=== PATIENT | male | born 1990 | race Hispanic/Latino ===

== ENCOUNTER 2022-02-17 08:26 | Inpatient (IN) | payer OTHER, SELFPAY ==
[2022-02-17] MEDS ORDERED: Morphine 4 MG/ML VIAL ONE (09:19)
[2022-02-17] MEDS ORDERED: Ondansetron PF 4 MG/2 ML Vial ONE ×2 (09:20→12:17)
[2022-02-17 10:13] LABS: #Basophils 0.1 thou/uL (0.0-0.2); #Lymphocytes 1.3 thou/uL (1.20-3.40); #Neutrophils 13.5 thou/uL (1.40-6.50); %Basophils 0.4 % (0.0-1.0); %Eosinophils 0.2 % (0.0-10.0); %Lymphocytes 8.2 % (21.0-51.0); %Neutrophils 85.1 % (42.0-75.0); Mean Corpuscular HGB CONC 33.6 g/dL (32.0-36.0); Mean Corpuscular Hemoglobin 31.3 pg (27.0-31.0); Mean Corpuscular Volume 93.3 fl (78.0-98.0); Mean Platelet Volume 6.6 fL (7.4-10.4); Platelet Count 265 10x3/uL (130-400); RBC Distribution Width 13.9 % (11.5-14.5); Red Blood Cell (RBC) Count 4.47 mill/uL (4.70-6.10); White Blood Cell (WBC) Count 15.9 10x3/uL (4.8-10.8)
[2022-02-17 10:33] LABS: ALT (SGPT) 14 U/L (8-55); AST (SGOT) 14 U/L (5-34); Albumin 3.7 g/dL (3.5-5.0); Alkaline Phosphatase 98 U/L (40-110); Anion Gap 10 mmol/L (10-20); BUN (Urea Nitrogen) 5 mg/dL (8.9-20.6); Bilirubin, Total 0.2 mg/dL (0.2-1.2); Calc. Creatinine Clearance 0 mL/min (70-130); Calcium 7.9 mg/dL (7.8-10.44); Carbon Dioxide 24 mmol/L (22-29); Chloride 105 mmol/L (98-107); Estimated GFR 127; Globulin 2.9 g/dL (2.4-3.5); Glucose 115 mg/dL (70-105); Potassium 3.4 mmol/L (3.5-5.1); Protein, Total 6.6 g/dL (6.0-8.3); Sodium 136 mmol/L (136-145)
[2022-02-17 11:07] LABS: Magnesium 1.7 mg/dL (1.6-2.6); Phosphorus 2.1 mg/dL (2.3-4.7)
[2022-02-17] MEDS ORDERED: Boostrix 0.5 ML (Tdap) VIAL (>/=7 yrs of age) ONE (11:25)
[2022-02-17] MEDS ORDERED: Ondansetron PF 4 MG/2 ML Vial IVP PRN (11:34)
[2022-02-17] MEDS ORDERED: TETANUS, DIPHTHERIA TOX,ADULT (TDVAX) 0.5 ML VIAL IM ONE (11:34)
[2022-02-17] MEDS ORDERED: Dextrose 5% in Water 1,000 ML IV PRN (11:34)
[2022-02-17] MEDS ORDERED: hydrALAZINE 20 MG/ML VIAL SLOW IVP PRN (11:34)
[2022-02-17] MEDS ORDERED: Dextrose 50% Abboject 50 ML SYRINGE SLOW IVP PRN (11:34)
[2022-02-17] MEDS ORDERED: Morphine 4 MG/ML VIAL SLOW IVP PRN (11:34)
[2022-02-17] MEDS ORDERED: Sodium Chloride 0.9% 100 ML ONE (11:44)
[2022-02-17] MEDS ORDERED: FENTANYL 50 MCG/ML 1 ML VIAL ONE ×3 (11:44→14:35)
[2022-02-17] MEDS ORDERED: CEFAZOLIN 2 GM VIAL ONE (11:44)
[2022-02-17] MEDS ORDERED: Sodium Chloride 0.9% 1,000 ML IV SCH (11:45)
[2022-02-17] MEDS ORDERED: Magnesium 2 GM/50 ML(in water) 2 GM in Premix Bag 1 BAG IVPB SCH (11:45)
[2022-02-17] MEDS ORDERED: Potassium Phosphate 30 MMOL, Magnesium Sulfate 2 GM in Sodium Chloride 0.9% 250 ML 250 ML IVPB SCH (11:45)
[2022-02-17] MEDS ORDERED: HYDROmorphone 0.5 MG/0.5 ML SYRINGE ONE (11:49)
[2022-02-17] MEDS ORDERED: fentaNYL PF 100 MCG/2 ML SYRINGE ONE (11:49)
[2022-02-17] MEDS ORDERED: Bupivacaine HCl 0.5%/Epinephrine 1:200,000/PF 30 ml Vial ONE (12:02)
[2022-02-17] MEDS ORDERED: Neomycin-Polymyxin 1 ML AMP ONE (12:02)
[2022-02-17] MEDS ORDERED: Bupivacaine 0.25% HCL 30 ML VIAL ONE (12:02)
[2022-02-17] MEDS ORDERED: Bupivacaine PF 0.5% 30 ML VIAL ONE (12:03)
[2022-02-17] MEDS ORDERED: Bupivacaine/Epinephrine 0.25% 30 ML VIAL ONE (12:03)
[2022-02-17] MEDS ORDERED: Vancomycin 1 GM/200 ML (FROZEN) BAG ONE (12:06)
[2022-02-17] MEDS ORDERED: CEFAZOLIN 2 GM in Sodium Chloride 0.9% 100 ML IVPB SCH (12:15)
[2022-02-17] MEDS ORDERED: PROPOFOL 200 MG/20 ML VIAL ONE (12:17)
[2022-02-17] MEDS ORDERED: Dexamethasone 20 MG/5 ML VIAL ONE (12:17)
[2022-02-17] MEDS ORDERED: Ketorolac Tromethamine 30 MG/ML VIAL ONE (12:17)
[2022-02-17] MEDS ORDERED: Metoclopramide HCl 10 MG/2 ML VIAL ONE (12:17)
[2022-02-17] MEDS ORDERED: Meperidine HCl/PF 25 MG/ML VIAL ONE (14:06)
[2022-02-17] MEDS ORDERED: Ondansetron HCl/PF 4 MG/2 ML Vial IVP PRN (14:10)
[2022-02-17] MEDS ORDERED: Promethazine HCl 25 MG/ML VIAL IM PRN (14:10)
[2022-02-17] MEDS ORDERED: Promethazine HCl 25 MG/ML VIAL IVPB PRN (14:10)
[2022-02-17] MEDS ORDERED: PACU-Morphine 4MG/ML VIAL SLOW IVP PRN (14:10)
[2022-02-17 15:27] VITALS: BMI 19.1
[2022-02-17] MEDS ORDERED: Vancomycin 1 GM in Premix Bag 1 BAG IVPB SCH (15:45)
[2022-02-17] MEDS: Gabapentin 300 MG CAP PO SCH ×2 (15:55→19:58)
[2022-02-17] MEDS: traMADol HCl 50 MG TAB PO SCH ×2 (15:56→19:59)
[2022-02-17] MEDS: Oxazepam 10 MG CAP PO SCH ×2 (15:57→22:19)
[2022-02-17] MEDS: Acetaminophen 500 MG TAB PO SCH ×2 (17:56→23:44)
[2022-02-17] MEDS: Senokot S 8.6-50 MG TAB PO SCH (19:59)
[2022-02-17] MEDS: Famotidine 20 MG TAB PO SCH (19:59)
[2022-02-17] MEDS: VANCOMYCIN 1.25 GM/250 ML BAG 1.25 GM in Premix Bag 1 BAG IVPB SCH (20:00)
[2022-02-17] MEDS ORDERED: VANCOMYCIN 1.25 GM/250 ML BAG IVPB SCH (21:00)
[2022-02-17 23:03] LABS: Amphetamine Not Detected (NotDetected); Barbiturates Screen Not Detected (NotDetected); Benzodiazepine Screen Not Detected (NotDetected); Cocaine Metabolite Screen Not Detected (NotDetected); Methadone Not Detected (NotDetected); Methamphetamine Not Detected (NotDetected); Opiate Screen Detected (NotDetected); Oxycodone Screen Not Detected (NotDetected); Phencyclidine (PCP) Not Detected (NotDetected); THC/Cannabinoid Screen Detected (NotDetected); Tricyclic Screen Not Detected (NotDetected)
[2022-02-18] MEDS: traMADol HCl 50 MG TAB PO SCH ×4 (03:50→21:44)
[2022-02-18] MEDS: Oxazepam 10 MG CAP PO SCH ×3 (04:59→21:45)
[2022-02-18] MEDS: Acetaminophen 500 MG TAB PO SCH ×3 (04:59→17:26)
[2022-02-18 06:42] LABS: #Lymphocytes 1.2 thou/uL (1.20-3.40); #Monocytes 1.5 thou/uL (0.11-0.59); #Neutrophils 14.9 thou/uL (1.40-6.50); %Basophils 0.1 % (0.0-1.0); %Eosinophils 0.1 % (0.0-10.0); %Lymphocytes 6.6 % (21.0-51.0); %Monocytes 8.5 % (0.0-10.0); %Neutrophils 84.8 % (42.0-75.0); Hemoglobin 12.6 g/dL (14.0-18.0); Mean Corpuscular Hemoglobin 31.4 pg (27.0-31.0); Mean Corpuscular Volume 95.3 fl (78.0-98.0); Mean Platelet Volume 6.8 fL (7.4-10.4); Platelet Count 251 10x3/uL (130-400); RBC Distribution Width 13.7 % (11.5-14.5); Red Blood Cell (RBC) Count 4.01 mill/uL (4.70-6.10); White Blood Cell (WBC) Count 17.5 10x3/uL (4.8-10.8)
[2022-02-18 07:05] LABS: Anion Gap 10 mmol/L (10-20); BUN (Urea Nitrogen) 5 mg/dL (8.9-20.6); Calc. Creatinine Clearance 154 mL/min (70-130); Carbon Dioxide 26 mmol/L (22-29); Chloride 102 mmol/L (98-107); Potassium 4.3 mmol/L (3.5-5.1); Sodium 134 mmol/L (136-145)
[2022-02-18 07:06] LABS: Calcium 8.2 mg/dL (7.8-10.44); Estimated GFR 128; Glucose 122 mg/dL (70-105); Magnesium 2.2 mg/dL (1.6-2.6); Phosphorus 3.5 mg/dL (2.3-4.7)
[2022-02-18] MEDS ORDERED: PHOS-NAK 1 PKT PACK PO SCH (08:00)
[2022-02-18] MEDS: Polyethylene Glycol 3350 17 GM Packet PO SCH (08:50)
[2022-02-18] MEDS: Thiamine 100 MG TAB PO SCH (08:51)
[2022-02-18] MEDS: Famotidine 20 MG TAB PO SCH ×2 (08:51→21:43)
[2022-02-18] MEDS: Folic Acid 1 MG TAB PO SCH (08:51)
[2022-02-18] MEDS: Senokot S 8.6-50 MG TAB PO SCH ×2 (08:51→21:44)
[2022-02-18] MEDS: Gabapentin 300 MG CAP PO SCH ×3 (08:51→21:43)
[2022-02-18] MEDS: Multivitamin W/ Minerals 1 TAB PO SCH (08:51)
[2022-02-18] MEDS: VANCOMYCIN 1.25 GM/250 ML BAG 1.25 GM in Premix Bag 1 BAG IVPB SCH (08:52)
[2022-02-18 15:40] LABS: Mean Corpuscular HGB CONC 31.5 g/dL (32.0-36.0); Mean Corpuscular Hemoglobin 29.6 pg (27.0-31.0); Mean Corpuscular Volume 93.9 fl (78.0-98.0); Mean Platelet Volume 7.3 fL (7.4-10.4); Platelet Count 251 10x3/uL (130-400); RBC Distribution Width 13.8 % (11.5-14.5); Red Blood Cell (RBC) Count 4.06 mill/uL (4.70-6.10); White Blood Cell (WBC) Count 16.2 10x3/uL (4.8-10.8)
[2022-02-18] MEDS: Enoxaparin Sodium 40 MG/0.4 ML SYRINGE SC SCH (21:42)
[2022-02-18] MEDS: Cyclobenzaprine 10 MG TAB PO PRN (21:44)
[2022-02-18] MEDS: Vancomycin 1.5 GRAM/300 ML BAG 1.5 GM in Premix Bag 1 BAG IVPB SCH (21:45)
[2022-02-19] MEDS: Acetaminophen 500 MG TAB PO SCH ×4 (00:44→17:04)
[2022-02-19] MEDS: traMADol HCl 50 MG TAB PO SCH ×4 (04:29→21:55)
[2022-02-19 05:14] LABS: #Basophils 0.1 thou/uL (0.0-0.2); #Eosinphils 0.1 thou/uL (0.0-0.7); #Lymphocytes 2.4 thou/uL (1.20-3.40); #Neutrophils 8.2 thou/uL (1.40-6.50); %Basophils 0.4 % (0.0-1.0); %Eosinophils 0.5 % (0.0-10.0); %Lymphocytes 20.3 % (21.0-51.0); %Monocytes 8.4 % (0.0-10.0); %Neutrophils 70.3 % (42.0-75.0); Hemoglobin 11.3 g/dL (14.0-18.0); Mean Corpuscular HGB CONC 32.2 g/dL (32.0-36.0); Mean Corpuscular Hemoglobin 30.7 pg (27.0-31.0); Mean Corpuscular Volume 95.4 fl (78.0-98.0); Mean Platelet Volume 7.1 fL (7.4-10.4); Platelet Count 250 10x3/uL (130-400); RBC Distribution Width 13.7 % (11.5-14.5); Red Blood Cell (RBC) Count 3.69 mill/uL (4.70-6.10); White Blood Cell (WBC) Count 11.7 10x3/uL (4.8-10.8)
[2022-02-19] MEDS: Oxazepam 10 MG CAP PO SCH ×3 (05:36→21:55)
[2022-02-19] MEDS: Vancomycin 1.5 GRAM/300 ML BAG 1.5 GM in Premix Bag 1 BAG IVPB SCH ×3 (05:36→21:56)
[2022-02-19 05:42] LABS: Anion Gap 11 mmol/L (10-20); BUN (Urea Nitrogen) 4 mg/dL (8.9-20.6); Calc. Creatinine Clearance 161 mL/min (70-130); Calcium 8.2 mg/dL (7.8-10.44); Carbon Dioxide 28 mmol/L (22-29); Chloride 104 mmol/L (98-107); Estimated GFR 130; Glucose 103 mg/dL (70-105); Magnesium 1.9 mg/dL (1.6-2.6); Phosphorus 2.6 mg/dL (2.3-4.7); Potassium 3.8 mmol/L (3.5-5.1); Sodium 139 mmol/L (136-145)
[2022-02-19] MEDS: Thiamine 100 MG TAB PO SCH (09:03)
[2022-02-19] MEDS: Famotidine 20 MG TAB PO SCH ×2 (09:03→21:53)
[2022-02-19] MEDS: Multivitamin W/ Minerals 1 TAB PO SCH (09:03)
[2022-02-19] MEDS: Senokot S 8.6-50 MG TAB PO SCH ×2 (09:03→21:54)
[2022-02-19] MEDS: Gabapentin 300 MG CAP PO SCH ×3 (09:03→21:53)
[2022-02-19] MEDS: Folic Acid 1 MG TAB PO SCH (09:03)
[2022-02-19] MEDS: Polyethylene Glycol 3350 17 GM Packet PO SCH (09:04)
[2022-02-19] MEDS: Enoxaparin Sodium 40 MG/0.4 ML SYRINGE SC SCH (21:53)
[2022-02-19] MEDS: Cyclobenzaprine 10 MG TAB PO PRN (21:55)
[2022-02-20] MEDS: Acetaminophen 500 MG TAB PO SCH ×4 (01:46→18:13)
[2022-02-20] MEDS: traMADol HCl 50 MG TAB PO SCH ×3 (05:37→17:55)
[2022-02-20] MEDS: Oxazepam 10 MG CAP PO SCH ×2 (05:37→17:55)
[2022-02-20 06:39] LABS: #Eosinphils 0.1 thou/uL (0.0-0.7); #Lymphocytes 1.8 thou/uL (1.20-3.40); #Monocytes 0.9 thou/uL (0.11-0.59); #Neutrophils 7.2 thou/uL (1.40-6.50); %Basophils 0.4 % (0.0-1.0); %Eosinophils 1.4 % (0.0-10.0); %Lymphocytes 17.6 % (21.0-51.0); %Neutrophils 71.6 % (42.0-75.0); Hemoglobin 11.2 g/dL (14.0-18.0); Mean Corpuscular HGB CONC 32.9 g/dL (32.0-36.0); Mean Corpuscular Hemoglobin 31.1 pg (27.0-31.0); Mean Corpuscular Volume 94.5 fl (78.0-98.0); Platelet Count 271 10x3/uL (130-400); RBC Distribution Width 13.2 % (11.5-14.5); Red Blood Cell (RBC) Count 3.61 mill/uL (4.70-6.10)
[2022-02-20 06:57] LABS: Anion Gap 10 mmol/L (10-20); BUN (Urea Nitrogen) 6 mg/dL (8.9-20.6); CRP (Inflammatory) 13.63 mg/dL (= or < 0.5); Calc. Creatinine Clearance 167 mL/min (70-130); Calcium 8.4 mg/dL (7.8-10.44); Carbon Dioxide 28 mmol/L (22-29); Chloride 101 mmol/L (98-107); Estimated GFR 131; Glucose 101 mg/dL (70-105); Potassium 3.5 mmol/L (3.5-5.1); Sodium 135 mmol/L (136-145)
[2022-02-20] MEDS: Polyethylene Glycol 3350 17 GM Packet PO SCH (10:24)
[2022-02-20] MEDS: Thiamine 100 MG TAB PO SCH (10:25)
[2022-02-20] MEDS: Multivitamin W/ Minerals 1 TAB PO SCH (10:25)
[2022-02-20] MEDS: Senokot S 8.6-50 MG TAB PO SCH ×2 (10:27→21:20)
[2022-02-20] MEDS: Famotidine 20 MG TAB PO SCH ×2 (10:27→21:20)
[2022-02-20] MEDS: Folic Acid 1 MG TAB PO SCH (10:27)
[2022-02-20] MEDS: Gabapentin 300 MG CAP PO SCH ×3 (10:28→21:20)
[2022-02-20] MEDS ORDERED: Vancomycin 1.5 GRAM/300 ML BAG 1.5 GM in Premix Bag 1 BAG IVPB SCH (15:33)
[2022-02-20 16:33] LABS: Vancomycin, Random 2.3 ug/mL (See Comment)
[2022-02-20] MEDS: Vancomycin 1.5 GRAM/300 ML BAG 1.5 GM in Premix Bag 1 BAG IVPB SCH (18:15)
[2022-02-20] MEDS: Enoxaparin Sodium 40 MG/0.4 ML SYRINGE SC SCH (21:19)
[2022-02-21] MEDS: Acetaminophen 500 MG TAB PO SCH ×4 (00:13→18:14)
[2022-02-21] MEDS: traMADol HCl 50 MG TAB PO SCH ×5 (00:13→21:50)
[2022-02-21] MEDS: Oxazepam 10 MG CAP PO SCH ×4 (00:14→21:51)
[2022-02-21] MEDS: Vancomycin 1.5 GRAM/300 ML BAG 1.5 GM in Premix Bag 1 BAG IVPB SCH ×2 (03:01→12:00)
[2022-02-21] MEDS ORDERED: CEFAZOLIN 2 GM in Sodium Chloride 0.9% 100 ML IVPB SCH (07:45)
[2022-02-21] MEDS: Famotidine 20 MG TAB PO SCH ×2 (10:08→21:50)
[2022-02-21] MEDS: Gabapentin 300 MG CAP PO SCH ×3 (10:09→21:49)
[2022-02-21] MEDS: Folic Acid 1 MG TAB PO SCH (10:09)
[2022-02-21] MEDS: Multivitamin W/ Minerals 1 TAB PO SCH (10:10)
[2022-02-21] MEDS: Senokot S 8.6-50 MG TAB PO SCH ×2 (10:10→21:51)
[2022-02-21] MEDS: Polyethylene Glycol 3350 17 GM Packet PO SCH (10:10)
[2022-02-21] MEDS: Thiamine 100 MG TAB PO SCH (10:10)
[2022-02-21] MEDS ORDERED: Ketorolac Tromethamine 30 MG/ML VIAL IVP SCH (10:30)
[2022-02-21] MEDS ORDERED: Lidocaine 1% (PF) 30 ML VIAL ONE (11:58)
[2022-02-21] MEDS ORDERED: CEFAZOLIN 2 GM VIAL ONE (12:08)
[2022-02-21] MEDS ORDERED: Sodium Chloride 0.9% 100 ML ONE (12:08)
[2022-02-21] MEDS ORDERED: Ketorolac Tromethamine 30 MG/ML VIAL ONE (12:17)
[2022-02-21] MEDS ORDERED: PROPOFOL 200 MG/20 ML VIAL ONE (12:17)
[2022-02-21] MEDS ORDERED: Ondansetron PF 4 MG/2 ML Vial ONE (12:17)
[2022-02-21] MEDS ORDERED: fentaNYL PF 100 MCG/2 ML SYRINGE ONE (12:18)
[2022-02-21] MEDS ORDERED: HYDROmorphone 2 MG/ML VIAL ONE (14:12)
[2022-02-21] MEDS ORDERED: HYDROmorphone 0.5 MG/0.5 ML SYRINGE ONE ×2 (14:55→15:13)
[2022-02-21] MEDS ORDERED: Promethazine HCl 25 MG/ML VIAL IVPB PRN (15:10)
[2022-02-21] MEDS ORDERED: HYDROmorphone 2 MG/ML VIAL SLOW IVP PRN (15:10)
[2022-02-21] MEDS ORDERED: Ondansetron HCl/PF 4 MG/2 ML Vial IVP PRN (15:10)
[2022-02-21] MEDS ORDERED: PACU-Morphine 4MG/ML VIAL SLOW IVP PRN (15:10)
[2022-02-21] MEDS ORDERED: Promethazine HCl 25 MG/ML VIAL IM PRN (15:10)
[2022-02-21] MEDS ORDERED: FENTANYL 50 MCG/ML 1 ML VIAL ONE ×2 (15:33→15:49)
[2022-02-21 17:20] LABS: Vancomycin, Trough 22.1 ug/mL
[2022-02-21] MEDS: VANCOMYCIN 1.25 GM/250 ML BAG 1.25 GM in Premix Bag 1 BAG IVPB SCH (18:13)
[2022-02-21] MEDS: Ketorolac Tromethamine 30 MG/ML VIAL IVP SCH (18:14)
[2022-02-21] MEDS: Enoxaparin Sodium 40 MG/0.4 ML SYRINGE SC SCH (21:49)
[2022-02-22] MEDS: Acetaminophen 500 MG TAB PO SCH ×4 (00:08→19:05)
[2022-02-22] MEDS: Ketorolac Tromethamine 30 MG/ML VIAL IVP SCH ×4 (00:09→19:05)
[2022-02-22] MEDS: VANCOMYCIN 1.25 GM/250 ML BAG 1.25 GM in Premix Bag 1 BAG IVPB SCH ×3 (03:18→19:34)
[2022-02-22] MEDS: traMADol HCl 50 MG TAB PO SCH ×3 (04:33→17:07)
[2022-02-22 05:34] LABS: #Basophils 0.1 thou/uL (0.0-0.2); #Eosinphils 0.2 thou/uL (0.0-0.7); #Lymphocytes 1.6 thou/uL (1.20-3.40); #Monocytes 1.5 thou/uL (0.11-0.59); #Neutrophils 7.7 thou/uL (1.40-6.50); %Basophils 0.7 % (0.0-1.0); %Eosinophils 1.7 % (0.0-10.0); %Lymphocytes 14.6 % (21.0-51.0); %Monocytes 13.6 % (0.0-10.0); %Neutrophils 69.5 % (42.0-75.0); Hemoglobin 10.9 g/dL (14.0-18.0); Mean Corpuscular HGB CONC 31.3 g/dL (32.0-36.0); Mean Corpuscular Hemoglobin 29.4 pg (27.0-31.0); Mean Corpuscular Volume 93.7 fl (78.0-98.0); Mean Platelet Volume 6.7 fL (7.4-10.4); Platelet Count 346 10x3/uL (130-400); RBC Distribution Width 13.1 % (11.5-14.5)
[2022-02-22] MEDS: Oxazepam 10 MG CAP PO SCH ×2 (05:49→15:23)
[2022-02-22] MEDS: Thiamine 100 MG TAB PO SCH (09:39)
[2022-02-22] MEDS: Gabapentin 300 MG CAP PO SCH ×2 (09:39→15:23)
[2022-02-22] MEDS: Senokot S 8.6-50 MG TAB PO SCH (09:39)
[2022-02-22] MEDS: Folic Acid 1 MG TAB PO SCH (09:39)
[2022-02-22] MEDS: Polyethylene Glycol 3350 17 GM Packet PO SCH (09:39)
[2022-02-22] MEDS: Multivitamin W/ Minerals 1 TAB PO SCH (09:39)
[2022-02-22] MEDS: Famotidine 20 MG TAB PO SCH (09:39)
[2022-02-22 16:54] VITALS: BP 118/74; TEMP 98.3
[2022-02-22 18:03] LABS: Vancomycin, Trough 19.5 ug/mL
== END 2022-02-22 20:21 | disposition home or self-care (01) | DRG 481 ==
LOC: ERS 08:26 → SURG B 10:47
PROVIDERS: ADMIT Surgery; ATTEND Surgery
PROC: 0QSC04Z Reposition Left Lower Femur with Internal Fixation Device, Open Approach (ICD-10-PCS; principal; 2022-02-17)
PROC: 0QPH04Z Removal of Internal Fixation Device from Left Tibia, Open Approach (ICD-10-PCS; 2022-02-21)
PROC: 0QCH0ZZ Extirpation of Matter from Left Tibia, Open Approach (ICD-10-PCS; 2022-02-21)
DX: S72.492A Other fracture of lower end of left femur, initial encounter for closed fracture (principal); M86.462 Chronic osteomyelitis with draining sinus, left tibia and fibula; J45.909 Unspecified asthma, uncomplicated; F17.210 Nicotine dependence, cigarettes, uncomplicated; S81.802A Unspecified open wound, left lower leg, initial encounter; E87.6 Hypokalemia; E83.39 Other disorders of phosphorus metabolism; F10.129 Alcohol abuse with intoxication, unspecified; B95.61 Methicillin susceptible Staphylococcus aureus infection as the cause of diseases classified elsewhere; Z88.8 Allergy status to other drugs, medicaments and biological substances; Z98.890 Other specified postprocedural states; Z20.822 Contact with and (suspected) exposure to COVID-19; Y04.2XXA Assault by strike against or bumped into by another person, initial encounter
CPT/HCPCS: 36415; 71045; 80048; 80053; 80202; 80306; 80307; 83735; 84100; 85025; 85652; 86140; 86850; 86870; 86900; 86901; 86922; 87070; 87076; 87077; 87186; 87205; 90471; 90715; 93005; 96374; 96375; C1713; G0390; J1100; J1170; J1650; J1885; J2001; J2175; J2270; J2405; J2704; J2765; J3010; J3370; J3370-JW; J3475; J3490; J7050; S0020; U0003; U0005